=== PATIENT | male | born 1995 | race Caucasian/White ===

== ENCOUNTER 2024-08-16 13:05 | Emergency (ER) | payer SELFPAY ==
[2024-08-16 13:09] VITALS: BP 129/86
--- NOTE | 2024-08-16 14:14 | ED.GENMED ---
History of Present Illness
General
Chief Complaint: Musculo-Skeletal Complaint
Time Seen by Provider: 08/16/24 13:26
History of Present Illness
History of Present Illness:
29-year-old otherwise healthy male presents the emergency department for evaluation of a work injury that occurred 5 days ago. He states that he is he slipped while walking causing his left leg to become locked in place and he felt a pop in the
anterior left groin. He has been able to work since then but with increasing pain throughout and had difficulty last night performing his typical duties. He can ambulate with pain. Has not taken any medication today for symptom control
Past History
Past History
ED Past Medical History: None
ED Past Surgical History: Tonsilectomy
Social History
Tobacco: Non-smoker
Alcohol: None
Review of Systems
Review of Systems
Allergies reviewed?: Yes
All Other Systems: ROS reviewed and negative except as documented in HPI and ROS
Phy Exam
Physical Exam
Physical Exam:
GEN: Well appearing, NAD, WDWN
HEENT: Oral mucosa moist, no scleral icterus
Cardiac: Regular rate
Lung: No respiratory distress, no tachypnea
MSK: No gross deformity or injuries. Reproducible tenderness to the left inguinal region. Left range of motion is normal however with forced extension of the hip elicits pain in resisted flexion elicits pain, no weakness
Skin: Good color, no pallor or jaundice, no rashes
Neuro: AO x3, moves all extremities freely
Psych: Calm, cooperative
Course
Orders/Labs/Results
Orders:
Orders
08/16/24 13:26
CR Hip - LT w/wo Pel 2-3 Vw* Urgent
Comment:
Reason For Exam: fall
Include a pelvis x-ray?: Yes
Vital Signs
Initial and Last Documented VS:
Initial Vital Signs
Temp Pulse Resp BP Pulse Ox
98.1 F 100 16 129/86 98
08/16/24 13:09 08/16/24 13:09 08/16/24 13:09 08/16/24 13:09 08/16/24 13:09
Last Documented Vital Signs
Temp Pulse Resp BP Pulse Ox
98.1 F 100 16 129/86 98
08/16/24 13:09 08/16/24 13:09 08/16/24 13:09 08/16/24 13:09 08/16/24 13:09
MDM/Problems Addressed
MDM/Problems Addressed:
Likely acute hip flexor strain, no evidence for complete muscle tear, x-rays obtained showing no evidence for bony abnormality. Recommend brief light duty and NSAID therapy, follow-up with his occupational medicine department for further work
restrictions as needed
*Critical Care Note
Total Time (30-74mins, 75-104mins- exclusive of procedures): Not Applicable
ED Attending Note
-
Portions of this chart may have been created with voice recognition software.� Occasional wrong word or��sound alike� substitutions may have occurred due to the inherent limitations of voice recognition software.
Discharge Plan
Departure
Patient Disposition: Home (Routine Discharge)
Date of Disposition: 08/16/24
Time of Disposition: 14:16
Patient with high blood pressure during this ER visit?: No
Discharge Problem:
Strain of flexor muscle of left hip
Instructions: Stretching Exercises for Your Lower Body
Prescriptions:
New
diclofenac sodium 75 mg tablet,delayed release (DR/EC)
75 mg PO BID PRN (Reason: Pain) Qty: 20 0RF
No Action
albuterol sulfate 90 mcg/actuation aerosol powdr breath activated
2 inh inhalation Q6H PRN (Reason: shortness of breath or wheezing) Qty: 1 0RF
fluticasone propionate [Flonase Allergy Relief] 50 mcg/actuation spray,suspension
1 spray intranasal BID Qty: 16 0RF
Referrals:
UNKNOWN - PT DOES,NOT KNOW [Family Provider]
Stand Alone Forms: Return to Work
Activity Restrictions/Additional Instructions:
Follow-up with your employers occupational medicine department for further work restrictions or work release as needed
Interventions
Interventions:
*Risk Screen - Suicide Last Done: 08/16/24 13:09
*Neglect/Abuse Screening Last Done: 08/16/24 13:09
Discharge Date and Time
Print Language: TELUGU
== END 2024-08-16 14:38 | disposition home or self-care (01) ==
LOC: EMR 13:05
PROVIDERS: EMERGENCY PHYSICIAN Emergency Medicine
DX: S76.012A Strain of muscle, fascia and tendon of left hip, initial encounter (principal); W01.0XXA Fall on same level from slipping, tripping and stumbling without subsequent striking against object, initial encounter
CPT/HCPCS: 99283; 73502